=== PATIENT | male | born 1990 | race Caucasian/White ===

== ENCOUNTER 2018-07-22 18:12 | Emergency (ER) | payer OTHER ==
[~2018-07-22] VITALS: Ht 167.6 cm; Wt 84.1 kg
[2018-07-22 18:13] VITALS: BP 136/82
[2018-07-22] MEDS ORDERED: GABA-843 PO ×2 (18:46→19:29)
== END 2018-07-22 18:53 | disposition home or self-care (01) ==
LOC: M ED 18:12
DX: B02.9 Zoster without complications (principal)